=== PATIENT | male | born 1980 | race Caucasian/White ===

== ENCOUNTER → 2018-05-11 | Outpatient (CLI) | payer BC ==
--- NOTE | 2018-05-13 07:49 | CT ---
EXAMINATION TYPE: CT abdomen pelvis wo con DATE OF EXAM: 05/11/2018 COMPARISON: None HISTORY: 38-year-old male Abdominal pian, constipation and low back pain CT DLP: 562 mGycm. Automated exposure control for dose reduction was used. TECHNIQUE: Contiguous axial scanning of the abdomen and pelvis without IV contrast. Coronal and sagit zina reconstructions performed. FINDINGS: Heart normal size without pericardial effusion. Lung bases clear without pleural effusion. Noncontrast appearance of the liver, gallbladder and adrenal glands, kidneys, spleen, and pancreas sh ow no gross abnormality. Some scattered prominent mesenteric lymph nodes are present especially in the mid abdomen measuring u p to 7 mm. While the appendix is not discretely visualized, no indirect signs of appendicitis are demonstrated. Mild to moderate stool in the right side of the colon. No significant stool in the remainder of the c olon. No pericolonic inflammatory change seen. Bladder urine distended. Pelvic phleboliths. No abnormal fluid collection in the pelvis or pelvic lym phadenopathy seen. Bones: There is L5 hemisacralization on both sides. No osseous destructive process. IMPRESSION: 1. 7 numerous prominent mid mesenteric lymph nodes measuring up to 7 mm. Nonspecific findings likely reactive/post inflammatory. Correlate for possible mesenteric adenitis. 2. Otherwise, no acute inflammatory process identified in the abdomen or pelvis. 3. Mild to moderate stool in the right side of the colon.
== END | disposition home or self-care (01) ==
LOC: RADCTMAIN 13:02
DX: R10.9 Unspecified abdominal pain (principal)
CPT/HCPCS: 74176

== ENCOUNTER → 2018-06-16 | Outpatient (CLI) | payer BC ==
[2018-06-16 17:29] LABS: HCT 44.9 % (39.0-53.0); HGB 14.8 gm/dL (13.0-17.5); MCH 28.8 pg (25.0-35.0); MCHC 33.1 g/dL (31.0-37.0); MCV 87.2 fL (80.0-100.0); Mean Platelet Volume 6.9; Platelet Count 209 k/uL (150-450); RBC 5.15 m/uL (4.30-5.90); RDW 12.8 % (11.5-15.5); WBC 5.8 k/uL (3.8-10.6)
[2018-06-16 18:25] LABS: Erythrocyte Sedimentation Rate 6 mm/hr (0-15)
[2018-06-16 23:55] LABS: ALT 20 U/L (10-49); AST 29 U/L (14-35); Albumin/Globulin Ratio 2.32 (1.60-3.17); Alkaline Phosphatase 54 U/L (41-126); C Reactive Protein <0.4 mg/dL (0.0-0.8); Calcium 9.9 mg/dL (8.7-10.3); Carbon Dioxide 26.3 mmol/L (21.6-31.8); Chloride 101 mmol/L (96-109); Globulin 2.2 g/dL (1.6-3.3); Glucose 82 mg/dL (70-110); Potassium 4.3 mmol/L (3.5-5.5); Sodium 138 mmol/L (135-145); Total Bilirubin 0.8 mg/dL (0.3-1.2); Total Protein 7.3 g/dL (6.2-8.2)
== END | disposition home or self-care (01) ==
LOC: LABWHC1 16:42
PROVIDERS: ATTEND Urology
DX: R93.5 Abnormal findings on diagnostic imaging of other abdominal regions, including retroperitoneum (principal); Z80.42 Family history of malignant neoplasm of prostate
CPT/HCPCS: 36415; 80053; 84153; 85027; 85652; 86140